=== PATIENT | female | born 1995 | race Caucasian/White ===

== ENCOUNTER 2017-11-22 18:52 | Emergency (ER) | payer OTHER ==
--- NOTE | 2017-11-22 19:20 | PDOC ---
Rapid Medical Evaluation Time Seen by Provider: 11/22/17 19:18 Medical Evaluation: 11/22/17 19:19 The patient presents with a chief complaint of: abd pain I have performed a brief in-person evaluation of this patient. Pertinent physical exam findings: vss, I have ordered the following: ua, urine The patient will proceed to the ED for further evaluation. Discharge Disposition - Referrals Referrals: Jose Grant MD [Primary Care Provider] - - Patient Instructions - Post Discharge Activity
[2017-11-22 19:22] VITALS: BP 112/50; PULSE 77; TEMP 98.9; BMI 27.2
[2017-11-22 20:21] LABS: HCG,QUALITATIVE URINE Positive
[2017-11-22 20:23] LABS: URINE APPEARANCE CLEAR; URINE BILIRUBIN NEGATIVE (<2.0 mg/dL); URINE COLOR LTYELLOW; URINE GLUCOSE (UA) NEGATIVE (NEGATIVE); URINE KETONE NEGATIVE (NEGATIVE); URINE LEUK ESTERASE NEGATIVE (NEGATIVE); URINE NITRITE NEGATIVE (NEGATIVE); URINE PROTEIN NEGATIVE (NEGATIVE); URINE UROBILINOGEN NEGATIVE mg/dL (0.2-1.0)
--- NOTE | 2017-11-22 21:35 | PDOC ---
History of Present Illness - General Chief Complaint: Pain Stated Complaint: BACK PAIN, ABD PAIN Time Seen by Provider: 11/22/17 19:18 History Source: Patient - History of Present Illness Initial Comments: 11/23/17 01:00 21 year old female with lower abdominal cramping to the back x 3 days. patient late on her period two days ago with negative test at home. denies vaginal bleeding/ discharge. Past History - Past Medical History Allergies/Adverse Reactions: Allergies Allergy/AdvReac Type Severity Reaction Status Date / Time No Known Allergies Allergy Verified 11/22/17 22:21 Home Medications: Ambulatory Orders NK [No Known Home Medication] 11/22/17 COPD: No Other medical history: PCOS - Suicide/Smoking/Psychosocial Hx Smoking History: Never smoked Have you smoked in the past 12 months: No Information on smoking cessation initiated: No Hx Alcohol Use: Yes (social) Drug/Substance Use Hx: No Substance Use Type: None Review of Systems - Review of Systems Able to Perform ROS?: Yes Is the patient limited Azerbaijani proficient: No Constitutional: No: Symptoms Reported, See HPI, Chills, Diaphoresis, Fever, Loss of Appetite, Malaise, Night Sweats, Weakness, Weight Stable, Unintentional Wgt. Loss, Unexplained wgt Loss, Other *Physical Exam - Vital Signs Last Vital Signs Temp Pulse Resp BP Pulse Ox 98.9 F 77 17 112/50 L 99 11/22/17 19:19 11/22/17 19:19 11/22/17 19:19 11/22/17 19:19 11/22/17 19:19 - Physical Exam General Appearance: Yes: Appropriately Dressed Respiratory/Chest: positive: Lungs Clear, Normal Breath Sounds Female Pelvic Exam: positive: normal external exam, other (white vaginal discharge. os closed + left adnexal tenderness) Gastrointestinal/Abdominal: positive: Normal Bowel Sounds, Soft Extremity: positive: Normal Capillary Refill, Normal Inspection, Normal Range of Motion Integumentary: positive: Normal Color, Dry, Warm Neurologic: positive: Fully Oriented, Alert, Normal Mood/Affect ED Treatment Course - LABORATORY CBC & Chemistry Diagram: 11/22/17 21:50 11/22/17 21:50 - ADDITIONAL ORDERS Additional order review: Laboratory Results 11/22/17 20:10 Urine Color Ltyellow Urine Appearance Clear Urine pH 7.0 Ur Specific [place] 1.020 Urine Protein Negative Urine Glucose (UA) Negative Urine Ketones Negative Urine Blood Negative Urine Nitrite Negative Urine Bilirubin Negative Urine Urobilinogen Negative Ur Leukocyte Esterase Negative Urine HCG, Qual Positive *DC/Admit/Observation/Transfer Diagnosis at time of Disposition: , location unknown - Discharge Dispostion Disposition: HOME - Referrals Referrals: Jose Grant MD [Primary Care Provider] - Nikole Samuel MD [Staff Physician] - 2 Days (follow up on tuesday for repeat blood test and evaluation) - Patient Instructions Printed Discharge Instructions: DI for Pelvic Pain Additional Instructions: please 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 * If there is no improvement in symptoms in 2 days call your physician. * Return to the Emergency Department for any worsening symptoms. - Post Discharge Activity
[2017-11-22 22:12] LABS: BASO % 0.4 % (0-2.0); EOS % 4.7 % (0-4.5); HEMATOCRIT 40.5 % (32.4-45.2); HEMOGLOBIN 13.8 GM/dL (10.7-15.3); LYMPH % 29.6 % (8-40); MCH 28.5 pg (25.7-33.7); MCHC 34.1 g/dl (32.0-36.0); MEAN CELL VOLUME 83.6 fl (80-96); MONO % 7.8 % (3.8-10.2); NEUT % 57.5 % (42.8-82.8); PLATELET COUNT 261 K/MM3 (134-434); RBC 4.84 M/mm3 (3.60-5.2); RDW 13.3 % (11.6-15.6); WHITE BLOOD COUNT 9.6 K/mm3 (4.0-10.0)
[2017-11-22 22:37] LABS: ALBUMIN 3.8 g/dl (3.4-5.0); ALK PHOS 96 U/L (45-117); ANION GAP 8 MMOL/L (8-16); BILIRUBIN,TOTAL 0.4 mg/dL (0.2-1); BLOOD UREA NITROGEN 8 mg/dL (7-18); CALCIUM 8.8 mg/dL (8.5-10.1); CHLORIDE 108 mmol/L (98-107); CO2 23 mmol/L (21-32); CREATININE 0.4 mg/dL (0.55-1.3); GLUCOSE,RANDOM 79 mg/dL (74-106); POTASSIUM 3.9 mmol/L (3.5-5.1); SGOT/AST 11 U/L (15-37); SGPT/ALT 18 U/L (13-61); SODIUM 138 mmol/L (136-145); TOT PROT 7.3 g/dl (6.4-8.2)
[2017-11-23] MEDS ORDERED: ACETAMINOPHEN 325 MG TABLET (FP) PO ONE (01:16)
[2017-11-23] MEDS ORDERED: ACETAMINOPHEN 325 MG TABLET (FP) ONE (01:38)
== END 2017-11-23 01:43 | disposition home or self-care (01) ==
LOC: JER 18:52
DX: O26.899 Other specified pregnancy related conditions, unspecified trimester (principal); R10.30 Lower abdominal pain, unspecified; Z3A.00 Weeks of gestation of pregnancy not specified
CPT/HCPCS: 36415; 76830-TC; 80053; 81003; 84702; 84703; 85025; 86850; 86900; 86901; 87086; 87389; 87491; 87591; 99283-25

== ENCOUNTER 2017-11-26 12:09 | Emergency (ER) | payer OTHER ==
[2017-11-26] MEDS ORDERED: AZITHROMYCIN 1 GM PACKET PO ONE (12:13)
--- NOTE | 2017-11-26 12:13 | PDOC ---
History of Present Illness - General Stated Complaint: FOLLOW UP/MEDICATION History Source: Patient, Old Records Exam Limitations: No Limitations - History of Present Illness Initial Comments: 11/26/17 12:19 This is a 21-year-old prima who presents emergency Department for treatment of positive chlamydia testing. Patient reports her LMP was the end of September she believes it was on the 25th. Patient had a beta level of 170 on previous visit without a visualized IUP. Patient denies any DRUG INSPECTOR complaints today. Past History - Past Medical History Allergies/Adverse Reactions: Allergies Allergy/AdvReac Type Severity Reaction Status Date / Time No Known Allergies Allergy Verified 11/26/17 12:12 Home Medications: Ambulatory Orders NK [No Known Home Medication] 11/22/17 COPD: No CHF: No - Suicide/Smoking/Psychosocial Hx Smoking History: Never smoked Have you smoked in the past 12 months: No Hx Alcohol Use: Yes (social) Drug/Substance Use Hx: No Substance Use Type: None Review of Systems - Review of Systems Able to Perform ROS?: Yes Is the patient limited Slovenian proficient: No Constitutional: No: Symptoms Reported HEENTM: No: Symptoms Reported Respiratory: No: Symptoms reported Cardiac (ROS): No: Symptoms Reported ABD/GI: No: Symptoms Reported : No: Symptoms Reported Musculoskeletal: No: Symptoms Reported Integumentary: No: Symptoms Reported Neurological: No: Symptoms reported Endocrine: No: Symptoms Reported Hematologic/Lymphatic: No: Symptoms Reported *Physical Exam - Physical Exam General Appearance: Yes: Appropriately Dressed. No: Apparent Distress HEENT: positive: Normal ENT Inspection Neck: positive: Trachea midline, Supple Respiratory/Chest: positive: Lungs Clear, Normal Breath Sounds. negative: Respiratory Distress, Accessory Muscle Use Gastrointestinal/Abdominal: positive: Normal Bowel Sounds, Soft. negative: Tender Medical Decision Making - Medical Decision Making 11/26/17 12:19 A/P: 21-year-old woman here for treatment of positive chlamydia testing Ceftriaxone 250 mg IM Azithromycin 1 g orally Partners here to be treated also Discharge home *DC/Admit/Observation/Transfer Diagnosis at time of Disposition: Chlamydia trachomatis infection during Qualifiers: Trimester: first trimester Qualified Code(s): O98.811 - Other maternal infectious and parasitic diseases complicating , first trimester - Discharge Dispostion Disposition: HOME Condition at time of disposition: Stable Decision to Admit order: No - Referrals - Patient Instructions Printed Discharge Instructions: DI for Chlamydia Additional Instructions: Return to emergency department for any concerns - Post Discharge Activity
[2017-11-26 12:15] VITALS: BP 121/73; PULSE 84; TEMP 98.8; BMI 28.0
[2017-11-26] MEDS ORDERED: AZITHROMYCIN 500 MG TABLET ONE (12:22)
[2017-11-26] MEDS ORDERED: AZITHROMYCIN 500 MG TABLET PO ONE (12:24)
== END 2017-11-26 12:34 | disposition home or self-care (01) ==
LOC: JERFT 12:09
DX: O26.891 Other specified pregnancy related conditions, first trimester (principal); O98.811 Other maternal infectious and parasitic diseases complicating pregnancy, first trimester; A74.89 Other chlamydial diseases; Z3A.01 Less than 8 weeks gestation of pregnancy
CPT/HCPCS: 96372; 99281-25

== ENCOUNTER 2018-10-31 18:44 | Emergency (ER) | payer OTHER | END 2018-10-31 22:28 | disposition home or self-care (01) | LOC: JER 18:44 ==

== ENCOUNTER 2018-12-19 20:29 | Emergency (ER) | payer OTHER ==
--- NOTE | 2018-12-19 20:37 | PDOC ---
Rapid Medical Evaluation Chief Complaint: Suicidal Time Seen by Provider: 12/19/18 20:32 Medical Evaluation: Allergies Allergy/AdvReac Type Severity Reaction Status Date / Time No Known Allergies Allergy Verified 10/31/18 19:08 12/19/18 20:35 CC: SI with plan to cut wrists or walk into traffic. Tried to OD on ETOH and "pills" 1 month ago. Denies AH/VH/PI/HI. +belief in god PE: No focal findings Orders: urine, labs, 1:1 The patient will proceed to the ER for continued Evaluation. 12/19/18 20:36 Discharge Disposition - Diagnosis Suicidal behavior without attempted self-injury - Referrals - Patient Instructions
[2018-12-19 20:40] VITALS: BMI 24.8
--- NOTE | 2018-12-19 22:09 | PDOC ---
History of Present Illness - General Chief Complaint: Suicidal Stated Complaint: SUICIDAL Time Seen by Provider: 12/19/18 20:32 Past History - Past Medical History Allergies/Adverse Reactions: Allergies Allergy/AdvReac Type Severity Reaction Status Date / Time No Known Allergies Allergy Verified 10/31/18 19:08 Home Medications: Ambulatory Orders Famotidine [Pepcid -] 20 mg PO BID #14 tablet 10/31/18 Mag Hydrox/Al Hydrox/Simeth [Mylanta Suspension -] 30 ml PO Q6H PRN #1 bottle Naproxen Sodium [Aleve] 220 mg PO PRN 10/31/18 COPD: No CHF: No Psychiatric Problems: Yes (snciety, suicide attempt, suicical ideations) - Immunization History Immunization Up to Date: Yes - Psycho Social/Smoking Cessation Hx Smoking History: Never smoked Have you smoked in the past 12 months: No Hx Alcohol Use: No Drug/Substance Use Hx: Yes (marijuanna) Substance Use Type: None *Physical Exam - Vital Signs Last Vital Signs Temp Pulse Resp BP Pulse Ox 98.3 F 82 20 127/94 100 12/19/18 20:36 12/19/18 20:36 12/19/18 20:36 12/19/18 20:36 12/19/18 20:36 Discharge - Discharge Information Clinical Impression/Diagnosis: Suicidal behavior without attempted self-injury - Follow up/Referral - Patient Discharge Instructions - Post Discharge Activity Work/Back to School Note: My Personal Safety Plan
[2018-12-19 22:26] LABS: BASO % 0.2 % (0-2.0); EOS % 1.6 % (0-4.5); HEMATOCRIT 36.2 % (32.4-45.2); HEMOGLOBIN 12.6 GM/dL (10.7-15.3); LYMPH % 37.7 % (8-40); MCH 29.2 pg (25.7-33.7); MCHC 34.9 g/dl (32.0-36.0); MEAN CELL VOLUME 83.6 fl (80-96); MEAN PLT VOLUME 8.4 fl (7.5-11.1); MONO % 6.2 % (3.8-10.2); NEUT % 54.3 % (42.8-82.8); PLATELET COUNT 233 K/MM3 (134-434); RBC 4.33 M/mm3 (3.60-5.2); RDW 13.6 % (11.6-15.6); WHITE BLOOD COUNT 9.7 K/mm3 (4.0-10.0)
[2018-12-19 22:50] LABS: BLOOD UREA NITROGEN 8.2 mg/dL (7-18); CALCIUM 8.9 mg/dL (8.5-10.1); CREATININE 0.5 mg/dL (0.55-1.3); POTASSIUM 3.2 mmol/L (3.5-5.1)
[2018-12-19 23:13] LABS: EPI CELLS 1.1 /HPF (0-5/HPF); HYALINE CASTS 25 /lpf (0-8); PH,URINE 8.5 (5.0-8.0); URINE APPEARANCE TURBID; URINE BACTERIA 4596.4 /hpf (NEGATIVE); URINE BILIRUBIN NEGATIVE (NEGATIVE); URINE COLOR YELLOW; URINE GLUCOSE (UA) NEGATIVE (NEGATIVE); URINE KETONE 2+ (NEGATIVE); URINE LEUK ESTERASE 2+ (NEGATIVE); URINE NITRITE POSITIVE (NEGATIVE); URINE PROTEIN NEGATIVE (NEGATIVE); URINE RBC 1 /hpf (0-4); URINE WBC 36 /hpf (0-5)
[2018-12-19] MEDS ORDERED: SULFAMETHOXAZOLE/TRIMETHOPRIM 800MG/160MG D.S. TABLET PO ONE (23:33)
[2018-12-19 23:50] LABS: COCAINE, UR NEGATIVE ng/ml (CUTOFF=300); PHENCYCLIDINE,URINE NEGATIVE ng/ml (CUTOFF=25); URINE AMPHETAMINES NEGATIVE ng/ml (CUTOFF=500); URINE BARBITURATES NEGATIVE ng/ml (CUTOFF=200); URINE BENZODIAZEPINES NEGATIVE ng/ml (CUTOFF=200)
[2018-12-19 23:51] LABS: METHADONE, UR NEGATIVE ng/ml (CUTOFF=300); OPIATES, URI NEGATIVE ng/ml (CUTOFF=300)
--- NOTE | 2018-12-19 23:55 | PDOC ---
Documentation entered by Margaux Mccormack SCRIBE, acting as scribe for Jojo Harman MD. Jojo Harman MD: This documentation has been prepared by the Ksenia moon Sammi, SCRIBE, under my direction and personally reviewed by me in its entirety. I confirm that the documentation accurately reflects all work, treatment, procedures, and medical decision making performed by me. History of Present Illness - General Chief Complaint: Suicidal Stated Complaint: SUICIDAL Time Seen by Provider: 12/19/18 20:32 - History of Present Illness Initial Comments: 12/19/18 22:32 The patient is a 22 year old female with a PMH of depression (with suicidal attempts) and asthma, who presents to the emergency department for evaluation of depressive episode onset this morning. The patient states she woke up this morning "off" and very sad and anxious and notes she is going through a lot of stress after a breakup and not being satisfied with her occupation. She describes a plan for a suicide attempt tonight after her mom went to sleep. She notes calling her psychiatrist who advised the patient on what to do and if symptoms persist to call her or present to the ED. The patient recalls recent suicide attempt in September 2018 and was stopped by her boyfriend at the time. The patient began following with a clinical psychiatrist, Britt Nunez, at the end of November and has not yet been medicated for her symptoms. Social history: social drinker, non-smoker Surgical history: Finger tendon repair 09/2018 Past History - Past Medical History Allergies/Adverse Reactions: Allergies Allergy/AdvReac Type Severity Reaction Status Date / Time No Known Allergies Allergy Verified 10/31/18 19:08 Home Medications: Ambulatory Orders Famotidine [Pepcid -] 20 mg PO BID #14 tablet 10/31/18 Mag Hydrox/Al Hydrox/Simeth [Mylanta Suspension -] 30 ml PO Q6H PRN #1 bottle Naproxen Sodium [Aleve] 220 mg PO PRN 10/31/18 COPD: No CHF: No Psychiatric Problems: Yes (snciety, suicide attempt, suicical ideations) - Immunization History Immunization Up to Date: Yes - Psycho Social/Smoking Cessation Hx Smoking History: Never smoked Have you smoked in the past 12 months: No Hx Alcohol Use: No Drug/Substance Use Hx: Yes (christian) Substance Use Type: None Review of Systems - Review of Systems Comments:: 12/19/18 22:39 CONSTITUTIONAL: Absent: fever, no chills, no fatigue CARDIOVASCULAR: Absent: chest pain, no palpitations RESPIRATORY: Absent: cough, no SOB GI: Absent: abdominal pain, no nausea, no vomiting, no constipation, no diarrhea GENITOURINARY: Absent: dysuria, no frequency, no hematuria NEURO: Absent: headache PSYCH: +depression +suicidal *Physical Exam - Vital Signs Last Vital Signs Temp Pulse Resp BP Pulse Ox 98.3 F 82 20 127/94 100 12/19/18 20:36 12/19/18 20:36 12/19/18 20:36 12/19/18 20:36 12/19/18 20:36 - Physical Exam Comments: 12/19/18 22:40 GENERAL: Well-appearing, well-nourished. No apparent distress. CARDIOVASCULAR: Normal S1, S2. Regular rate and rhythm. PULMONARY: Clear to auscultation bilaterally. ABDOMEN: Soft, non-distended, non-tender. NEUROLOGICAL: No focal neurological deficits. ED Treatment Course - LABORATORY CBC & Chemistry Diagram: 12/19/18 22:05 12/19/18 22:05 - ADDITIONAL ORDERS Additional order review: Laboratory Results 12/19/18 12/19/18 12/19/18 22:50 22:50 22:50 Sodium Potassium Chloride Carbon Dioxide Anion Gap BUN Creatinine Est GFR (CKD-EPI)AfAm Est GFR (CKD-EPI)NonAf Random Glucose Calcium TSH Urine Color Yellow Urine Appearance Turbid Urine pH 8.5 H D Ur Specific [place] 1.026 Urine Protein Negative Urine Glucose (UA) Negative Urine Ketones 2+ H Urine Blood Negative Urine Nitrite Positive H Urine Bilirubin Negative Urine Urobilinogen 1.0 Ur Leukocyte Esterase 2+ H Urine WBC (Auto) 36 Urine RBC (Auto) 1 Urine Casts (Auto) 25 U Epithel Cells (Auto) 1.1 Urine Bacteria (Auto) 4596.4 Urine HCG, Qual Negative Barbiturate Screen Negative Phencyclidine Screen Negative Ur Amphetamines Screen Negative MDMA (Ecstasy) Screen Negative Benzodiazepines Screen Negative Cocaine Screen Negative 12/19/18 12/19/18 22:05 22:05 Sodium 139 Potassium 3.2 L Chloride 108 H Carbon Dioxide 26 Anion Gap 6 L BUN 8.2 Creatinine 0.5 L Est GFR (CKD-EPI)AfAm 159.23 Est GFR (CKD-EPI)NonAf 137.38 Random Glucose 101 Calcium 8.9 TSH 0.96 Urine Color Urine Appearance Urine pH Ur Specific [place] Urine Protein Urine Glucose (UA) Urine Ketones Urine Blood Urine Nitrite Urine Bilirubin Urine Urobilinogen Ur Leukocyte Esterase Urine WBC (Auto) Urine RBC (Auto) Urine Casts (Auto) U Epithel Cells (Auto) Urine Bacteria (Auto) Urine HCG, Qual Barbiturate Screen Phencyclidine Screen Ur Amphetamines Screen MDMA (Ecstasy) Screen Benzodiazepines Screen Cocaine Screen 12/19/18 22:05 RBC 4.33 MCV 83.6 MCHC 34.9 RDW 13.6 MPV 8.4 Neutrophils % 54.3 Lymphocytes % 37.7 Monocytes % 6.2 Eosinophils % 1.6 D Basophils % 0.2 Medical Decision Making - Medical Decision Making 12/19/18 22:[address] Yañez, awaiting call back. 12/19/18 23:51 22-year-old female presents because of depression and thoughts of hurting herself Today she was thinking of getting in the bathroom and cutting her wrists She has had some problems with severe sadness in the past but just recently started to see a therapist She sees Vandana santoro at [address] [place] [address] and he had some Jolly, [phone] She has not been on any medications for her depression as of yet She states that she recently cut a tendon in her finger because she was going to cut herself with the scissors and the boyfriend at the time pulled the scissors away accidentally cutting the tendon in her right finger 12/19/18 23:54 She graduated from high school and she graduated from [employer] with a degree in sociology She has been working for [employer] but is quite disappointed with her job On a personal level she just broke up with her boyfriend This evening she presents with her mother She said that her disappointment with her job and her recent break-up with her boyfriend triggered her deep sadness and thoughts of suicide 12/19/18 23:55 Labs were reviewed and she does have urinary tract infection will be placed on antibiotics She has a negative test CBC unremarkable chemitries show k=3.3 and she was given potassium 12/19/18 23:56 12/20/18 01:03 Dr Nesbitt has been called twice and voice mail left but he did not respond PLAN Page Dr Nesbitt at 6 am Discharge - Discharge Information Clinical Impression/Diagnosis: Suicidal behavior without attempted self-injury - Follow up/Referral Referrals: Jose Grant MD [Primary Care Provider] - - Patient Discharge Instructions - Post Discharge Activity Work/Back to School Note: My Personal Safety Plan
[2018-12-20] MEDS ORDERED: SULFAMETHOXAZOLE/TRIMETHOPRIM 800MG/160MG D.S. TABLET ONE (00:15)
[2018-12-20 06:42] VITALS: BP 121/83; PULSE 76; TEMP 98.1
--- NOTE | 2018-12-20 10:16 | CON.PSY ---
Psychiatry Consult Chief Complaint: 22 kori old female came to ER with MOM for feeling depressed and fatigued. History of Depression and been seeing a therapist at a local [facility] clinic. She will see her Psych soon. she has taken some codeine pills few weeks ago. Works [employer] at [address] Mom will [id number] her home. Broke up with her Bf yesterday. Symptoms: reports: Depressed Mood, Anhedonia, Suicidality - Previous Psychiatric Treatment Outpatient: Less than 6 mos ago Inpatient: None - Previous Substance Abuse Treatment Outpatient: None Inpatient: None - Reason for Previous Treatment Reason for Previous Treatment: Major Depression - Allergies Allergies: Allergies Allergy/AdvReac Type Severity Reaction Status Date / Time No Known Allergies Allergy Verified 10/31/18 19:08 - Current Living Status Usual Living Arrangement: With Parent - Current Mental Status Evaluation Appearance: Well Groomed Attitude: Cooperative - Affect Affect: Constrictive Appropriateness: Appropriate to Content - Mood Mood: Depressed - Speech/Language Expressive: Coherent - Psychomotor Activity Psychomotor Activity: Normal - Thought Process Thought Process: Intact - Thought Content Hallucinations: Absent Delusions: Absent - Self Perception Self Perception: No Impairment - Cognition Attention: Alert Orientation: Time Memory, Immediate Recall: Intact Memory, Short Term: 3/3 Memory, Remote with Promptin/3 - Concentration Serial Sevens Intact: Yes Simple Calculations Intact: Yes - Abstraction Proverb Interpretation: Intact Judgement: Minimally Impaired - Insight Insight: Intact - Impulse Control Impulse Control: Minimally Impaired - Suicidal Ideation Plan: No conctrete plans at this time. - Homicidal Ideation Homicidal Ideation: No Assessment/Plan 1) Start [id number] 25mg po od two weeks supply. 2)patient will see her therapist on Tuesday. 3) Discharge when [id number] clear.
--- NOTE | 2018-12-20 10:17 | PDOC ---
*Physical Exam - Vital Signs Last Vital Signs Temp Pulse Resp BP Pulse Ox 98.1 F 76 16 121/83 99 12/20/18 06:41 12/20/18 06:41 12/20/18 06:41 12/20/18 06:41 12/20/18 06:41 ED Treatment Course - LABORATORY CBC & Chemistry Diagram: 12/19/18 22:05 12/19/18 22:05 - ADDITIONAL ORDERS Additional order review: Laboratory Results 12/19/18 12/19/18 12/19/18 22:50 22:50 22:50 Sodium Potassium Chloride Carbon Dioxide Anion Gap BUN Creatinine Est GFR (CKD-EPI)AfAm Est GFR (CKD-EPI)NonAf Random Glucose Calcium TSH Urine Color Yellow Urine Appearance Turbid Urine pH 8.5 H D Ur Specific [place] 1.026 Urine Protein Negative Urine Glucose (UA) Negative Urine Ketones 2+ H Urine Blood Negative Urine Nitrite Positive H Urine Bilirubin Negative Urine Urobilinogen 1.0 Ur Leukocyte Esterase 2+ H Urine WBC (Auto) 36 Urine RBC (Auto) 1 Urine Casts (Auto) 25 U Epithel Cells (Auto) 1.1 Urine Bacteria (Auto) 4596.4 Urine HCG, Qual Negative Opiates Screen Negative Methadone Screen Negative Barbiturate Screen Negative Phencyclidine Screen Negative Ur Amphetamines Screen Negative MDMA (Ecstasy) Screen Negative Benzodiazepines Screen Negative Cocaine Screen Negative U Marijuana (THC) Screen Positive A* 12/19/18 12/19/18 22:05 22:05 Sodium 139 Potassium 3.2 L Chloride 108 H Carbon Dioxide 26 Anion Gap 6 L BUN 8.2 Creatinine 0.5 L Est GFR (CKD-EPI)AfAm 159.23 Est GFR (CKD-EPI)NonAf 137.38 Random Glucose 101 Calcium 8.9 TSH 0.96 Urine Color Urine Appearance Urine pH Ur Specific [place] Urine Protein Urine Glucose (UA) Urine Ketones Urine Blood Urine Nitrite Urine Bilirubin Urine Urobilinogen Ur Leukocyte Esterase Urine WBC (Auto) Urine RBC (Auto) Urine Casts (Auto) U Epithel Cells (Auto) Urine Bacteria (Auto) Urine HCG, Qual Opiates Screen Methadone Screen Barbiturate Screen Phencyclidine Screen Ur Amphetamines Screen MDMA (Ecstasy) Screen Benzodiazepines Screen Cocaine Screen U Marijuana (THC) Screen 12/19/18 22:05 RBC 4.33 MCV 83.6 MCHC 34.9 RDW 13.6 MPV 8.4 Neutrophils % 54.3 Lymphocytes % 37.7 Monocytes % 6.2 Eosinophils % 1.6 D Basophils % 0.2 - Medications Given in the ED: ED Medications Discontinued Medications Generic Name Dose Route Start Last Admin Trade Name Alessio PRN Reason Stop Dose Admin Trimethoprim/Sulfamethoxazole 1 each 12/19/18 23:33 12/20/18 00:18 Bactrim Ds - PO 12/19/18 23:34 1 each ONCE ONE Administration Medical Decision Making - Medical Decision Making 12/20/18 10:12 22-year-old female here today complaining of depression with suicidal ideation. Patient was signed out to me by the night team awaiting psychiatric consult. My discussion the patient states that she has been under a lot of stress and feels that was multiple issues compiled into one that made her feel this way. States she did have prior suicidal ideations was interviewed by her boyfriend no family history of depression does see a therapist but is not currently taking any medication I discussed with Dr. jesus through Dr. Nguyen evaluate the patient in the ED is recommending discharge home with close follow-up with her therapist will initiate Zoloft 25 mg daily patient is here with her mother both in agreement with discharge to home Discharge - Discharge Information Problems reviewed: Yes Clinical Impression/Diagnosis: Suicidal behavior without attempted self-injury Condition: Good Disposition: HOME - Admission No - Additional Discharge Information Prescriptions: Sertraline HCl [Zoloft] 25 mg PO DAILY #14 tablet Sulfamethoxazole/Trimethoprim [Bactrim Ds Tablet] 1 each PO BID #14 tablet - Follow up/Referral Referrals: Jose Grant MD [Primary Care Provider] - - Patient Discharge Instructions Patient Printed Discharge Instructions: DI for Suicidal Ideation-Adult, Urinary Tract Infection Additional Instructions: you should start taking zoloft 25 mg daily . this is an antidepressant. you will need to get the following prescription from your psychiatrist or you primary doctor. if you develop shaking, or involuntary muscle activity you should be evaluated immediately. follow up with your psychologist. return for any concerns, worsening thoughts of self harm or any concerns. in addition you have a urinary tract infection. you should take an antibiotic bactrim twice daily for your urinary tract infection. return for fever, vomiting or any concerns. follow up with your primary doctor within 1 - 2 weeks call to schedule. - Post Discharge Activity Work/Back to School Note: My Personal Safety Plan
== END 2018-12-20 10:40 | disposition home or self-care (01) ==
LOC: JER 20:29
DX: R45.851 Suicidal ideations (principal); N39.0 Urinary tract infection, site not specified; Z91.5 Personal history of self-harm
CPT/HCPCS: 36415; 80048; 80307; 81003; 84443; 84703; 85025; 87086; 87186; 99283-25

== ENCOUNTER 2020-02-09 11:39 | Emergency (ER) | payer OTHER ==
[2020-02-09 12:13] VITALS: BP 99/61; PULSE 76; TEMP 98.6; BMI 24.0
[2020-02-09 13:39] LABS: BASO % 0.6 % (0-2.0); EOS % 0.7 % (0-4.5); HEMATOCRIT 37.2 % (32.4-45.2); HEMOGLOBIN 12.6 GM/dL (10.7-15.3); MCH 28.5 pg (25.7-33.7); MCHC 33.9 g/dl (32.0-36.0); MEAN CELL VOLUME 84.1 fl (80-96); MEAN PLT VOLUME 9.3 fl (7.5-11.1); MONO % 6.9 % (3.8-10.2); NEUT % 59.8 % (42.8-82.8); PLATELET COUNT 210 K/MM3 (134-434); RBC 4.42 M/mm3 (3.60-5.2); RDW 13.8 % (11.6-15.6); WHITE BLOOD COUNT 7.6 K/mm3 (4.0-10.0)
[2020-02-09 13:52] LABS: EPI CELLS 12 /uL (0-25.1); HYALINE CASTS 0 /uL (0-3.1); PH,URINE 6.5 (5.0-8.0); URINE APPEARANCE CLEAR; URINE BACTERIA 107 /uL (0-1359); URINE BILIRUBIN NEGATIVE (NEGATIVE); URINE COLOR YELLOW; URINE GLUCOSE (UA) NEGATIVE (NEGATIVE); URINE KETONE NEGATIVE (NEGATIVE); URINE LEUK ESTERASE 2+ (NEGATIVE); URINE NITRITE NEGATIVE (NEGATIVE); URINE PROTEIN NEGATIVE (NEGATIVE); URINE RBC 15 /uL (0-23.9); URINE UROBILINOGEN 0.2 mg/dL (0.2-1.0); URINE WBC 4 /uL (0-25.8)
[2020-02-09 13:57] LABS: POTASSIUM 4.5 mmol/L (3.5-5.1)
[2020-02-09 13:59] LABS: BLOOD UREA NITROGEN 7.1 mg/dL (7-18); CALCIUM 8.9 mg/dL (8.5-10.1)
[2020-02-09] MEDS ORDERED: AZITHROMYCIN 500 MG TABLET PO ONE (13:59)
[2020-02-09 14:00] LABS: ALBUMIN 3.8 g/dl (3.4-5.0)
[2020-02-09 14:03] LABS: CREATININE 0.4 mg/dL (0.55-1.3)
[2020-02-09 14:04] LABS: BILIRUBIN,TOTAL 0.5 mg/dL (0.2-1); TOT PROT 7.4 g/dl (6.4-8.2)
[2020-02-09] MEDS ORDERED: cefTRIAXone SODIUM 1 GM VIAL ONE (15:06)
[2020-02-09] MEDS ORDERED: AZITHROMYCIN 250 MG TABLET ONE (15:06)
[2020-02-09] MEDS ORDERED: ONDANSETRON 4 MG/2 ML VIAL IVPUSH ONE (15:47)
[2020-02-09] MEDS ORDERED: ONDANSETRON 4 MG/2 ML VIAL ONE (15:58)
== END 2020-02-09 16:49 | disposition home or self-care (01) ==
LOC: JER 11:39
PROC: 3E033GC Introduction of Other Therapeutic Substance into Peripheral Vein, Percutaneous Approach (ICD-10-PCS; principal; 2020-02-09)
PROC: 3E023GC Introduction of Other Therapeutic Substance into Muscle, Percutaneous Approach (ICD-10-PCS; principal; 2020-02-09)
DX: O20.9 Hemorrhage in early pregnancy, unspecified (principal); Z3A.08 8 weeks gestation of pregnancy
CPT/HCPCS: 36415; 76801-TC; 80053; 81003; 83690; 84702; 85025; 86850; 86900; 86901; 87086; 87491; 87591; 99284-25

== ENCOUNTER 2020-07-18 20:40 | Emergency (ER) | payer OTHER ==
[2020-07-18 20:47] VITALS: BP 104/66; PULSE 99; TEMP 98; BMI 31.1
== END 2020-07-18 21:31 | disposition home or self-care (01) ==
LOC: JERFT 20:40
DX: J01.90 Acute sinusitis, unspecified (principal)
CPT/HCPCS: 99281-25

== ENCOUNTER 2020-09-21 23:43 | Inpatient (IN) | payer OTHER ==
[2020-09-22] MEDS ORDERED: BUTORPHANOL TARTRATE 1 MG/ML VIAL IVPB PRN ×2 (00:58)
[2020-09-22] MEDS ORDERED: ELECTROLYTE-148 SOLN 1,000 ML IV SCH (01:00)
[2020-09-22 01:38] LABS: BASO % 0.2 % (0-2.0); EOS % 0.3 % (0-4.5); HEMATOCRIT 35.1 % (32.4-45.2); HEMOGLOBIN 12.1 GM/dL (10.7-15.3); LYMPH % 21.4 % (8-40); MCH 27.5 pg (25.7-33.7); MCHC 34.4 g/dl (32.0-36.0); MEAN CELL VOLUME 80.1 fl (80-96); MEAN PLT VOLUME 8.2 fl (7.5-11.1); MONO % 6.4 % (3.8-10.2); NEUT % 71.7 % (42.8-82.8); PLATELET COUNT 190 10^3/uL (134-434); RBC 4.38 M/mm3 (3.60-5.2); RDW 16.9 % (11.6-15.6); WHITE BLOOD COUNT 10.6 K/mm3 (4.0-10.0)
[2020-09-22 01:49] LABS: INR 0.95 (0.83-1.09); PROTHROMBIN TIME (PATIENT) 11.5 SEC (9.7-13.0)
[2020-09-22 01:52] VITALS: BMI 33.7
[2020-09-22 02:06] LABS: BLOOD UREA NITROGEN 6.6 mg/dL (7-18); CALCIUM 9.1 mg/dL (8.5-10.1)
[2020-09-22 02:09] LABS: CREATININE 0.4 mg/dL (0.55-1.3)
[2020-09-22 06:29] LABS: HIV INTERPRETATION NEGATIVE (NEGATIVE)
[2020-09-22] MEDS ORDERED: PROMETHAZINE HCL 25 MG/1 ML VIAL IVPB ONE (07:40)
[2020-09-22] MEDS ORDERED: BUTORPHANOL TARTRATE 2 MG/ML VIAL ONE (07:45)
[2020-09-22] MEDS ORDERED: PROMETHAZINE HCL 25 MG/1 ML VIAL ONE (07:45)
[2020-09-22] MEDS ORDERED: PCA PUMP NR ONE (09:39)
[2020-09-22] MEDS ORDERED: FENTANYL/BUPIVACAINE/NS/PF - PCEA - 50 ML DISP.SYRIN EP ONE ×2 (09:55→14:48)
[2020-09-22] MEDS: FENTANYL/BUPIVACAINE/NS/PF - PCEA - 50 ML DISP.SYRIN EP SCH ×2 (10:20→14:50)
[2020-09-22] MEDS ORDERED: NALOXONE HCL 0.4 MG/ML VIAL IVPUSH PRN (10:44)
[2020-09-22] MEDS ORDERED: OXYTOCIN 30 UNITS in 0.9% NS 30 UNIT/500 ML INFUS.BAG IVPB SCH (11:00)
[2020-09-22] MEDS ORDERED: FENTANYL/BUPIVACAINE/NS/PF - PCEA - 50 ML DISP.SYRIN EP SCH (11:15)
[2020-09-22] MEDS ORDERED: LIDOCAINE HCL/EPINEPHRINE/PF 10 ML VIAL ONE (15:28)
[2020-09-22] MEDS ORDERED: OXYTOCIN 20 UNITS in 0.9% NS 20 UNIT/1,000 ML INFUS.BAG IV ONE ×2 (15:28→16:41)
[2020-09-22] MEDS ORDERED: ONDANSETRON 4 MG/2 ML VIAL ONE (15:37)
[2020-09-22] MEDS ORDERED: ACETAMINOPHEN 325 MG TABLET (FP) PO PRN (15:48)
[2020-09-22] MEDS ORDERED: METHYLERGONOVINE MALEATE 0.2 MG/1 ML AMP IM PRN (15:48)
[2020-09-22] MEDS ORDERED: OXYTOCIN 20 UNITS in 0.9% NS 20 UNIT/1,000 ML INFUS.BAG IV SCH (16:00)
[2020-09-22] MEDS ORDERED: morphine SULFATE/PF 0.5 MG/ML (2cc Syringe - QUVA) ONE ×2 (16:14)
[2020-09-22] MEDS ORDERED: PHENYLEPHRINE HCL 10 MG/1 ML SINGLE DOSE VIAL ONE (16:16)
[2020-09-22 17:49] LABS: CORD BASE EXCESS -1.4 mmol/L (0-2); CORD HCO3 24.9 mmHg (20-29); CORD PCO2 47.3 mmHg (30-78); CORD pH 7.339 (7.14-7.44)
[2020-09-22 17:51] LABS: CORD BASE EXCESS -5.9 mmol/L (0-2); CORD HCO3 22.2 mmHg (20-29); CORD PCO2 53.5 mmHg (30-78); CORD pH 7.235 (7.14-7.44)
[2020-09-22] MEDS ORDERED: ACETAMINOPHEN 1000 MG/100 ML VIAL (NON FORMULARY) IVPB PRN (18:06)
[2020-09-22] MEDS ORDERED: IBUPROFEN 800 MG/8 ML IJ IVPB ONE ×2 (18:38→19:00)
[2020-09-23 08:40] LABS: BASO % 0.2 % (0-2.0); EOS % 0.4 % (0-4.5); HEMATOCRIT 29.2 % (32.4-45.2); LYMPH % 13.8 % (8-40); MCH 28.1 pg (25.7-33.7); MCHC 34.2 g/dl (32.0-36.0); MEAN CELL VOLUME 82.3 fl (80-96); MEAN PLT VOLUME 8.4 fl (7.5-11.1); MONO % 6.8 % (3.8-10.2); NEUT % 78.8 % (42.8-82.8); PLATELET COUNT 139 10^3/uL (134-434); RBC 3.54 M/mm3 (3.60-5.2); RDW 16.9 % (11.6-15.6)
[2020-09-23 09:14] LABS: POC NITRAZINE POS
[2020-09-23] MEDS: SIMETHICONE 80 MG TAB.CHEW (FP) PO PRN ×3 (09:14→22:42)
[2020-09-23] MEDS: IBUPROFEN 600 MG TABLET (FP) PO PRN ×3 (09:14→22:43)
[2020-09-23] MEDS ORDERED: oxyCODONE HCL 5 MG TABLET PO PRN (15:48)
[2020-09-23] MEDS ORDERED: BISACODYL 10 MG SUPP.RECT RC PRN (15:48)
[2020-09-23] MEDS: oxyCODONE HCL 5 MG TABLET PO PRN ×2 (16:02→22:42)
[2020-09-24] MEDS: SIMETHICONE 80 MG TAB.CHEW (FP) PO PRN ×3 (07:31→16:17)
[2020-09-24] MEDS: oxyCODONE HCL 5 MG TABLET PO PRN ×2 (12:10→16:18)
[2020-09-24 18:32] VITALS: BP 109/68; PULSE 80; TEMP 98.4
== END 2020-09-24 18:20 | disposition home or self-care (01) | DRG 540 ==
LOC: JLDR 23:43 → J3W 09-22 20:10
PROVIDERS: ADMIT Obstetrics & Gynecology; ATTEND Obstetrics & Gynecology
PROC: 10D00Z1 Extraction of Products of Conception, Low, Open Approach (ICD-10-PCS; principal; 2020-09-22)
DX: O62.1 Secondary uterine inertia (principal); O36.8330 Maternal care for abnormalities of the fetal heart rate or rhythm, third trimester, not applicable or unspecified; O99.013 Anemia complicating pregnancy, third trimester; Z3A.40 40 weeks gestation of pregnancy; O98.52 Other viral diseases complicating childbirth; U07.1 COVID-19; Z37.0 Single live birth
CPT/HCPCS: 36415; 36600; 59025; 80048; 82803; 83986-QW; 85025; 85610; 85730; 86780; 86850; 86900; 86901; 87389; C9803; U0003; U0005

== ENCOUNTER 2021-10-25 13:30 | Emergency (ER) | payer OTHER ==
[2021-10-25 13:52] VITALS: BP 121/70; PULSE 84; RESP 14; TEMP 98; BMI 29.2
[2021-10-25] MEDS ORDERED: ACETAMINOPHEN 500 MG TABLET (FP) PO ONE (14:50)
[2021-10-25] MEDS ORDERED: ACETAMINOPHEN 500 MG TABLET (FP) ONE (15:02)
[2021-10-25] MEDS ORDERED: KETOROLAC TROMETHAMINE 30 MG/1 ML VIAL IM ONE (16:07)
[2021-10-25] MEDS ORDERED: KETOROLAC TROMETHAMINE 30 MG/1 ML VIAL ONE (16:10)
== END 2021-10-25 16:14 | disposition home or self-care (01) ==
LOC: JERFT 13:30
PROC: 3E0233Z Introduction of Anti-inflammatory into Muscle, Percutaneous Approach (ICD-10-PCS; principal; 2021-10-25)
DX: M54.12 Radiculopathy, cervical region (principal)
CPT/HCPCS: 84703; 99284-25